=== PATIENT | female | born 1985 | race Caucasian/White ===

== ENCOUNTER 2017-09-07 23:42 | Emergency (ER) | payer OTHER ==
[~2017-09-07] VITALS: Ht 152.4 cm; Wt 49.9 kg
[~2017-09-07 23:42] MED LIST: DIAZEPAM 5 MG5 M1 OR; HYDROCODON-ACE1 EAC7; HYDROXYZINE HCL10 M1 PO; KEFLEX500 M1 PO; PREDNISONE 20 M20 MG PO; ULTRAM 50MG TAB50 MG PO
[2017-09-08 00:08] LABS: URINE BILIRUBIN NEGATIVE (Negative); URINE BLOOD TRACE (Negative); URINE CLARITY CLEAR; URINE COLOR YELLOW; URINE GLUCOSE-RANDOM NEGATIVE (Negative); URINE KETONES NEGATIVE (Negative); URINE LEUKOCYTES-REFLEX 1+ (Negative); URINE NITRITE-REFLEX NEGATIVE (Negative); URINE PROTEIN NEGATIVE (Negative); URINE SPECIFIC GRAVITY <= 1.005 (1.005-1.030); URINE UROBILINOGEN 0.2 E.U./dl (0.2-1.0)
[2017-09-08 00:17] LABS: AMP/METHAMP Negative (Negative); BARBITURATES Negative (Negative); BENZODIAZEPINES POSITIVE (Negative); COCAINE Negative (Negative); METHADONE Negative (Negative); OPIATES Negative (Negative); PCP Negative (Negative); THC POSITIVE (Negative)
[2017-09-08 00:27] LABS: CASTS None Seen /LPF (None Seen); CRYSTALS None Seen /LPF (None Seen); MUCUS 4-6 Moderate strn/LPF (None Seen); SQUAMOUS >10 Many /LPF (0-3); TRANSITIONAL EPITHEL CELL 0-3 Few /LPF (None Seen); URINE RBC 3-10 Few /HPF (0-2); URINE WBC-REFLEX 6-15 Few /HPF (0-5)
[2017-09-08 00:30] LABS: ABSOLUTE BASOPHILS 0.1 thou/uL (0.0-0.2); ABSOLUTE EOSINOPHILS 0.2 thou/uL (0.0-0.7); ABSOLUTE LYMPHOCYTES 4.3 thou/uL (0.8-5.3); ABSOLUTE MONOCYTES 0.9 thou/uL (0.0-1.2); BASOPHILS 0.7 %; EOSINOPHILS 1.9 %; HEMATOCRIT 42.1 % (37.0-47.0); HEMOGLOBIN 14.4 gm/dL (12.0-15.0); LYMPHOCYTES 34.5 %; MCH 30.8 pg (26.0-34.0); MCHC 34.1 g/dL (28.0-37.0); MCV 90.4 fL (80.0-100.0); MONOCYTES 6.9 %; MPV 9.6 fl. (7.2-11.1); NUCLEATED RBCS 0 /100WBC; PLATELET COUNT* 206 thou/uL (150-400); RBC 4.66 mil/uL (4.20-5.00); RDW-CV 13.7 % (10.5-14.5); WBC 12.5 thou/uL (4.0-11.0)
[2017-09-08 00:39] LABS: CALCIUM 8.6 mg/dL (8.5-10.1); CREATININE 0.7 mg/dL (0.6-1.3); POTASSIUM 3.7 mmol/L (3.5-5.1)
[2017-09-08 00:43] LABS: ALBUMIN 3.8 g/dL (3.4-5.0); TOTAL BILIRUBIN 0.4 mg/dL (<0.1-1.0); TOTAL PROTEIN 6.9 g/dL (6.4-8.2)
[2017-09-08] MEDS ORDERED: HYDROCODONE-AP1 EAC6 PO (00:44)
[2017-09-08] MEDS ORDERED: BACTRIM DS TAB1 EACH PO (00:45)
[2017-09-08 03:17] VITALS: BP 102/57
== END 2017-09-08 03:17 | disposition home or self-care (01) ==
LOC: M.ERS 23:42
PROVIDERS: Emergency Medicine; Physician Assistant
DX: N39.0 Urinary tract infection, site not specified (principal); Z98.890 Other specified postprocedural states; Z88.6 Allergy status to analgesic agent

== ENCOUNTER 2018-03-06 17:36 | Emergency (ER) | payer OTHER ==
[~2018-03-06] VITALS: Ht 152.4 cm; Wt 54.4 kg
[~2018-03-06 17:36] MED LIST changes: +BACTRIM DS TAB1 EACH PO; +HYDROCODONE-AP1 EAC6 PO
[2018-03-06] MEDS ORDERED: BACTRIM DS TAB1 EACH PO (18:52)
[2018-03-06] MEDS ORDERED: KEFLEX500 M1 PO (18:52)
[2018-03-06 19:07] VITALS: BP 111/74
== END 2018-03-06 19:07 | disposition short-term general hospital (02) ==
LOC: M.ERS 17:36
DX: N76.4 Abscess of vulva (principal); Z88.6 Allergy status to analgesic agent; Z98.890 Other specified postprocedural states

== ENCOUNTER 2018-08-28 07:18 | Emergency (ER) | payer OTHER ==
[~2018-08-28] VITALS: Ht 149.9 cm; Wt 45.4 kg
[2018-08-28] MEDS ORDERED: MIRENA1 EACH IY (07:30)
[2018-08-28 07:56] LABS: INFLUENZA B ANTIGEN None Detected (None Detect)
[2018-08-28 08:05] LABS: HEMATOCRIT 37.7 % (37.0-47.0); HEMOGLOBIN 12.9 gm/dL (12.0-15.0); MCH 30.1 pg (26.0-34.0); MCHC 34.2 g/dL (28.0-37.0); MCV 87.8 fL (80.0-100.0); MPV 10.4 fl. (7.2-11.1); RBC 4.3 mil/uL (4.20-5.00); WBC 6.5 thou/uL (4.0-11.0)
[2018-08-28] MEDS ORDERED: HYDROCODONE-AP1 EAC6 PO (08:10)
[2018-08-28] MEDS ORDERED: TAMIFLU75 MG PO (08:10)
[2018-08-28 08:19] LABS: ANION GAP 8 mmol/L (7-16); BUN 4 mg/dL (7-18); CALCIUM 9.3 mg/dL (8.5-10.1); CHLORIDE 103 mmol/L (98-107); CO2 27 mmol/L (21-32); CREATININE 0.8 mg/dL (0.6-1.3); GLUCOSE 82 mg/dL (70-99); POTASSIUM 3.3 mmol/L (3.5-5.1); SODIUM 138 mmol/L (136-145); TROPONIN-I LEVEL <0.06 ng/mL (<0.06)
[2018-08-28] MEDS ORDERED: ZOFRAN ODT4 MG DISSOLVE (08:41)
[2018-08-28] MEDS ORDERED: ZPAK PO (08:57)
[2018-08-28 09:13] VITALS: BP 102/94
--- NOTE | 2018-08-28 11:21 | EKG ---
[place] [address] ELECTROCARDIOGRAM REPORT Name: CAITIE SETHI Room: 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1985 Requested By: Zhang Whiting Order Number: [id number] MD: Wei Oconnell Measurements Intervals [place] Rate: 106 P: 69 IN: 141 QRS: 54 QRSD: 86 T: 29 QT: 304 QTc: 404 Interpretive Statements Sinus tachycardia RSR' in V1 or V2, right VCD or RVH No previous ECG available for comparison Electronically Signed On 08-28-2018 11:21:06 [employer]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
[2018-08-29] MEDS ORDERED: REGLAN 10 MG TA10 MG PO (00:04)
[2018-08-29] MEDS ORDERED: VENTOLIN HFA 1818 GM INH (00:04)
[2018-08-29] MEDS ORDERED: MEDROLDOSEPACK PO (00:04)
== END 2018-08-28 09:14 | disposition home or self-care (01) ==
LOC: M.ERS 07:18
PROVIDERS: Emergency Medicine Emergency Medical Services
DX: J10.1 Influenza due to other identified influenza virus with other respiratory manifestations (principal); Z98.890 Other specified postprocedural states; Z88.6 Allergy status to analgesic agent

== ENCOUNTER 2018-08-28 21:57 | Emergency (ER) | payer OTHER ==
[~2018-08-28] VITALS: Ht 149.9 cm; Wt 45.4 kg
[~2018-08-28 21:57] MED LIST changes: +MIRENA1 EACH IY; +TAMIFLU75 MG PO; +ZOFRAN ODT4 MG DISSOLVE; +ZPAK PO
[2018-08-29] MEDS ORDERED: MEDROLDOSEPACK PO (00:04)
[2018-08-29] MEDS ORDERED: VENTOLIN HFA 1818 GM INH (00:04)
[2018-08-29] MEDS ORDERED: REGLAN 10 MG TA10 MG PO (00:04)
[2018-08-29 00:47] VITALS: BP 92/47
== END 2018-08-29 00:48 | disposition home or self-care (01) ==
LOC: M.ERS 21:57
DX: J18.9 Pneumonia, unspecified organism (principal); R51 Headache; Z98.890 Other specified postprocedural states; Z88.6 Allergy status to analgesic agent

== ENCOUNTER 2018-09-06 16:46 | Emergency (ER) | payer OTHER ==
[~2018-09-06] VITALS: Ht 149.9 cm; Wt 46.7 kg
[~2018-09-06 16:46] MED LIST changes: +MEDROLDOSEPACK PO; +REGLAN 10 MG TA10 MG PO; +VENTOLIN HFA 1818 GM INH
[2018-09-06 17:19] LABS: INFLUENZA A ANTIGEN None Detected (None Detect); INFLUENZA B ANTIGEN None Detected (None Detect)
[2018-09-06 17:33] VITALS: BP 111/70
== END 2018-09-06 17:34 | disposition home or self-care (01) ==
LOC: M.ERS 16:46
PROVIDERS: Nurse Practitioner Family
DX: Z02.79 Encounter for issue of other medical certificate (principal); Z88.6 Allergy status to analgesic agent

== ENCOUNTER 2020-03-19 23:54 | Emergency (ER) | payer OTHER ==
[~2020-03-19] VITALS: Ht 149.9 cm; Wt 49.9 kg
[2020-03-20] MEDS ORDERED: LEXAPRO20 MG PO (00:42)
[2020-03-20] MEDS ORDERED: HYDROXYZINE HCL25 M2 PO (01:04)
[2020-03-20 01:29] LABS: ABSOLUTE EOSINOPHILS 0.3 thou/uL (0.0-0.7); ABSOLUTE MONOCYTES 0.7 thou/uL (0.0-1.2); ABSOLUTE NEUTROPHILS 3.7 thou/uL (1.6-8.1); BASOPHILS 0.5 %; EOSINOPHILS 3.5 %; HEMATOCRIT 40.8 % (37.0-47.0); HEMOGLOBIN 14.4 gm/dL (12.0-15.0); LYMPHOCYTES 45.5 %; MCH 31.8 pg (26.0-34.0); MCHC 35.3 g/dL (28.0-37.0); MCV 90.3 fL (80.0-100.0); MONOCYTES 7.9 %; MPV 9.7 fl. (7.2-11.1); NUCLEATED RBCS 0 /100WBC; PLATELET COUNT* 202 thou/uL (150-400); POLYS 42.6 %; RBC 4.52 mil/uL (4.20-5.00); RDW-CV 12.8 % (10.5-14.5); WBC 8.7 thou/uL (4.0-11.0)
[2020-03-20 01:45] LABS: URINE BILIRUBIN NEGATIVE (Negative); URINE BLOOD TRACE (Negative); URINE CLARITY CLEAR; URINE COLOR YELLOW; URINE GLUCOSE-RANDOM NEGATIVE (Negative); URINE KETONES NEGATIVE (Negative); URINE LEUKOCYTES-REFLEX TRACE (Negative); URINE NITRITE-REFLEX POSITIVE (Negative); URINE PROTEIN NEGATIVE (Negative); URINE SPECIFIC GRAVITY 1.025 (1.005-1.030); URINE UROBILINOGEN 0.2 E.U./dl (0.2-1.0)
[2020-03-20 01:45] LABS: ALBUMIN 3.7 g/dL (3.4-5.0); CALCIUM 9.2 mg/dL (8.5-10.1); CREATININE 0.7 mg/dL (0.6-1.3); POTASSIUM 3.9 mmol/L (3.5-5.1); TOTAL BILIRUBIN 0.4 mg/dL (<0.1-1.0); TOTAL PROTEIN 7.1 g/dL (6.4-8.2)
[2020-03-20 02:16] LABS: BACTERIA-REFLEX >30 Many /HPF (None Seen); CASTS None Seen /LPF (None Seen); CRYSTALS None Seen /LPF (None Seen); MUCUS 0-3 Light strn/LPF (None Seen); SQUAMOUS 4-10 Moderate /LPF (0-3); TRANSITIONAL EPITHEL CELL 0-3 Few /LPF (None Seen); URINE RBC 0-2 Rare /HPF (0-2); URINE WBC-REFLEX 6-15 Few /HPF (0-5)
[2020-03-20] MEDS ORDERED: ULTRAM50 MG PO (02:46)
[2020-03-20] MEDS ORDERED: MACROBID 100 M100 M1 PO (02:46)
[2020-03-20 03:00] VITALS: BP 99/54
== END 2020-03-20 03:00 | disposition home or self-care (01) ==
LOC: M.ERS 23:54
PROVIDERS: Personal Emergency Response Attendant
DX: N39.0 Urinary tract infection, site not specified (principal); Z88.6 Allergy status to analgesic agent; Z98.890 Other specified postprocedural states

== ENCOUNTER 2020-12-03 11:14 | Emergency (ER) | payer OTHER ==
[~2020-12-03] VITALS: Ht 149.9 cm; Wt 52.2 kg
[~2020-12-03 11:14] MED LIST changes: +HYDROXYZINE HCL25 M2 PO; +LEXAPRO20 MG PO; +MACROBID 100 M100 M1 PO; +ULTRAM50 MG PO
[2020-12-03 12:08] LABS: ABSOLUTE BASOPHILS 0.1 thou/uL (0.0-0.2); ABSOLUTE EOSINOPHILS 0.2 thou/uL (0.0-0.7); ABSOLUTE LYMPHOCYTES 2.2 thou/uL (0.8-5.3); ABSOLUTE MONOCYTES 0.6 thou/uL (0.0-1.2); BASOPHILS 0.8 %; EOSINOPHILS 2.6 %; HEMATOCRIT 41.8 % (37.0-47.0); HEMOGLOBIN 14.6 gm/dL (12.0-15.0); LYMPHOCYTES 36.4 %; MCH 30.8 pg (26.0-34.0); MCHC 34.8 g/dL (28.0-37.0); MCV 88.3 fL (80.0-100.0); MONOCYTES 10.1 %; MPV 9.6 fl. (7.2-11.1); NUCLEATED RBCS 0 /100WBC; PLATELET COUNT* 240 thou/uL (150-400); POLYS 50.1 %; RBC 4.74 mil/uL (4.20-5.00); RDW-CV 13.4 % (10.5-14.5)
[2020-12-03 12:17] LABS: CALCIUM 8.9 mg/dL (8.5-10.1); CREATININE 0.8 mg/dL (0.6-1.3); POTASSIUM 3.3 mmol/L (3.5-5.1)
[2020-12-03 12:28] LABS: TOTAL BILIRUBIN 0.7 mg/dL (<0.1-1.0); TOTAL PROTEIN 7.4 g/dL (6.4-8.2)
[2020-12-03] MEDS ORDERED: TESSALON PERLE100 MG PO (13:17)
[2020-12-03] MEDS ORDERED: PREDNISONE 10 M10 M1 PO (13:17)
[2020-12-03 13:44] VITALS: BP 114/70
--- NOTE | 2020-12-05 13:49 | EKG ---
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1985 Requested By: Terrie Cheema Order Number: [id number] MD: Geoffrey Hacktet Measurements Intervals [place] Rate: 91 P: 75 SC: 122 QRS: 48 QRSD: 79 T: -41 QT: 452 QTc: 557 Interpretive Statements Sinus rhythm Atrial premature complex RSR' in V1 or V2, probably normal variant Nonspecific T abnormalities, inferior leads Prolonged QT interval Baseline wander in lead(s) I,III,aVL Compared to ECG 08/28/2018 07:53:30 Atrial premature complex(es) now present T-wave abnormality now present Prolonged QT interval now present Sinus tachycardia no longer present Electronically Signed On 12-05-2020 13:48:49 CDT by Geoffrey Hackett [email or web address] <ELECTRONICALLY SIGNED> By: Geoffrey Hackett MD, [facility] 12/05/20 1348 1150 1150 Goeffrey Hackett MD, [facility] /EPI
== END 2020-12-03 13:45 | disposition home or self-care (01) ==
LOC: M.ERS 11:14
PROVIDERS: Nurse Practitioner Family
DX: J20.9 Acute bronchitis, unspecified (principal); Z20.822 Contact with and (suspected) exposure to COVID-19; F17.210 Nicotine dependence, cigarettes, uncomplicated; Z88.6 Allergy status to analgesic agent; Z98.890 Other specified postprocedural states

== ENCOUNTER 2021-04-30 13:19 | Emergency (ER) | payer OTHER ==
[~2021-04-30] VITALS: Ht 149.9 cm; Wt 49.9 kg
[~2021-04-30 13:19] MED LIST changes: +PREDNISONE 10 M10 M1 PO; +TESSALON PERLE100 MG PO
[2021-04-30 14:34] VITALS: BP 122/72
== END 2021-04-30 14:35 | disposition home or self-care (01) ==
LOC: M.ERS 13:19
DX: S63.501A Unspecified sprain of right wrist, initial encounter (principal); F17.210 Nicotine dependence, cigarettes, uncomplicated; Z98.890 Other specified postprocedural states; Z88.6 Allergy status to analgesic agent; Z88.8 Allergy status to other drugs, medicaments and biological substances; X58.XXXA Exposure to other specified factors, initial encounter; Y93.72 Activity, wrestling; Y92.89 Other specified places as the place of occurrence of the external cause; Y99.8 Other external cause status

== ENCOUNTER 2021-08-05 19:12 | Emergency (ER) | payer OTHER ==
[~2021-08-05] VITALS: Ht 149.9 cm; Wt 49.0 kg
[2021-08-05] MEDS ORDERED: CEPHALEXIN500 MG PO (22:12)
[2021-08-05] MEDS ORDERED: DOXYCYCLINE 10100 MG PO (22:12)
[2021-08-05] MEDS ORDERED: HYDROCODON-ACE1 EAC7 PO (22:17)
[2021-08-05 22:32] VITALS: BP 120/64
== END 2021-08-05 22:32 | disposition home or self-care (01) ==
LOC: M.ERS 19:12
DX: T63.301A Toxic effect of unspecified spider venom, accidental (unintentional), initial encounter (principal); N61.1 Abscess of the breast and nipple; Z98.890 Other specified postprocedural states; Z88.6 Allergy status to analgesic agent; Z88.8 Allergy status to other drugs, medicaments and biological substances; Y92.89 Other specified places as the place of occurrence of the external cause

== ENCOUNTER 2021-08-09 11:08 | Emergency (ER) | payer OTHER ==
[~2021-08-09] VITALS: Ht 149.9 cm; Wt 49.9 kg
[~2021-08-09 11:08] MED LIST changes: +CEPHALEXIN500 MG PO; +DOXYCYCLINE 10100 MG PO; +HYDROCODON-ACE1 EAC7 PO
[2021-08-09 12:04] VITALS: BP 127/71
== END 2021-08-09 12:05 | disposition home or self-care (01) ==
LOC: M.ERS 11:08
DX: N61.0 Mastitis without abscess (principal); R11.2 Nausea with vomiting, unspecified; Z98.890 Other specified postprocedural states; Z79.2 Long term (current) use of antibiotics; Z79.899 Other long term (current) drug therapy; Z88.6 Allergy status to analgesic agent; Z88.8 Allergy status to other drugs, medicaments and biological substances